=== PATIENT | female | born 1985 | race Caucasian/White ===

== ENCOUNTER 2018-03-25 15:01 | Emergency (ER) | payer OTHER ==
[2018-03-25] MEDS: METHOCARBAMOL 500 MG TAB PO (17:08)
[2018-03-25] MEDS: IBUPROFEN 800 MG TAB PO (17:08)
[2018-03-25] MEDS: predniSONE 20 MG TAB PO (17:08)
== END 2018-03-25 17:17 | disposition home or self-care (01) ==
LOC: M ED 15:01
DX: G56.03 Carpal tunnel syndrome, bilateral upper limbs (principal); M79.652 Pain in left thigh; M79.662 Pain in left lower leg; F41.9 Anxiety disorder, unspecified; Z91.013 Allergy to seafood
CPT/HCPCS: 93970

== ENCOUNTER → 2018-03-31 | Outpatient (REF) | payer OTHER | LOC: M SFHCLERA 17:10 | DX: Z53.8 Procedure and treatment not carried out for other reasons (principal) ==

== ENCOUNTER 2018-06-02 18:33 | Emergency (ER) | payer OTHER ==
[2018-06-02 21:49] LABS: BASO % 0.5 % (0.0-1.0); EOS # 0.1 10^3/uL (0.0-0.50); EOS % 1.4 % (0.0-3.0); HEMATOCRIT 41.6 % (36.0-47.0); HEMOGLOBIN 13.9 g/dl (12.0-15.5); IMMATURE GRANULOCYTE % 0.3 % (0-3.0); LYMPH # 2.9 10^3/uL (1.5-4.5); LYMPH % 37.3 % (24.0-44.0); MEAN CORPUSCULAR HEMOGLOBIN 29.3 pg (27.0-33.0); MEAN CORPUSCULAR HGB CONC 33.4 g/dl (32.0-36.5); MEAN CORPUSCULAR VOLUME 87.6 fl (80.0-96.0); MONO # 0.5 10^3/uL (0.0-0.8); MONO % 6.1 % (0.0-5.0); NEUTROPHILS # 4.2 10^3/uL (1.8-7.7); NEUTROPHILS % 54.4 % (36.0-66.0); PLATELET COUNT, AUTOMATED 231 10^3/uL (150-450); RED BLOOD COUNT 4.75 10^6/uL (4.00-5.40); WHITE BLOOD COUNT 7.7 10^3/uL (4.0-10.0)
[2018-06-02] MEDS: METOCLOPRAMIDE INJ 10MG/2ML VIAL (J2765) IV (21:54)
[2018-06-02] MEDS: NS 1,000 ML IV (21:54)
[2018-06-02] MEDS: KETOROLAC 30 MG/ML VIAL (J1885) IV (21:55)
[2018-06-02] MEDS: diphenhydrAMINE INJ 50MG/ML VIAL (J1200) IV (21:55)
[2018-06-02 22:11] LABS: ERYTHROCYTE SEDIMENTATION RATE 4 mm/hr (0-20)
[2018-06-02 22:12] LABS: ANION GAP 6 MEQ/L (8-16); BLOOD UREA NITROGEN 16 MG/DL (7-18); C REACTIVE PROTEIN QUANTITATIV < 0.30 MG/DL (0.00-0.30); CALCIUM LEVEL 9.2 MG/DL (8.5-10.1); CARBON DIOXIDE LEVEL 28 MEQ/L (21-32); CHLORIDE LEVEL 105 MEQ/L (98-107); CREATININE FOR GFR 0.83 MG/DL (0.55-1.30); GLOMERULAR FILTRATION RATE > 60.0 (>60); GLUCOSE, FASTING 86 MG/DL (70-100); SODIUM LEVEL 139 MEQ/L (136-145)
[2018-06-08 00:07] LABS: Lyme Disease IgG Ab 18 kDa Ban Absent (.); Lyme Disease IgG Ab 23 kDa Ban Absent (.); Lyme Disease IgG Ab 28 kDa Ban Absent (.); Lyme Disease IgG Ab 30 kDa Ban Absent (.); Lyme Disease IgG Ab 39 kDa Ban Absent (.); Lyme Disease IgG Ab 41 kDa Ban Present (.); Lyme Disease IgG Ab 45 kDa Ban Present (.); Lyme Disease IgG Ab 58 kDa Ban Absent (.); Lyme Disease IgG Ab 66 kDa Ban Absent (.); Lyme Disease IgG Ab 93 kDa Ban Absent (.); Lyme Disease IgG West Blot Int Negative (.); Lyme Disease IgM Ab 23 kDa Ban Absent (.); Lyme Disease IgM Ab 39 kDa Ban Absent (.); Lyme Disease IgM Ab 41 kDa Ban Absent (.); Lyme Disease IgM Ab Quantitati <0.80 index (0.00-0.79); Lyme Disease IgM West Blot Int Negative (.)
== END 2018-06-02 22:50 | disposition home or self-care (01) ==
LOC: M ED 18:33
DX: G43.909 Migraine, unspecified, not intractable, without status migrainosus (principal); Z79.899 Other long term (current) drug therapy
CPT/HCPCS: J1200

== ENCOUNTER → 2018-06-02 | Outpatient (CLI) | payer OTHER | LOC: M RAD 07:28 | DX: R10.11 Right upper quadrant pain (principal) ==

== ENCOUNTER → 2018-06-05 | Outpatient (REF) | payer OTHER | LOC: M SFHCLERA 11:08 | DX: J02.9 Acute pharyngitis, unspecified (principal) ==

== ENCOUNTER → 2018-06-22 | Outpatient (REF) | payer OTHER ==
[2018-06-22 18:52] LABS: APPEARANCE, URINE CLEAR (CLEAR); BACTERIA, URINE AUTO 1+ (NEGATIVE); BILIRUBIN, URINE AUTO NEGATIVE (NEGATIVE); BLOOD, URINE BLOOD 1+ (NEGATIVE); COLOR, URINE YELLOW (YELLOW); GLUCOSE, URINE (UA) AUTO NEGATIVE (NEGATIVE); KETONE, URINE AUTO NEGATIVE (NEGATIVE); LEUKOCYTE ESTERASE, URINE AUTO NEGATIVE (NEGATIVE); MUCUS, URINE SMALL (NEGATIVE); NITRITE, URINE AUTO NEGATIVE (NEGATIVE); PROTEIN, URINE AUTO NEGATIVE (NEGATIVE); RBC, URINE AUTO 0 /HPF (0-3); SPECIFIC GRAVITY URINE AUTO 1.012 (1.002-1.035); SQUAMOUS EPITHELIAL CELL UR AU 2 /HPF (0-6); UROBILINOGEN, URINE AUTO 0.2 mg/dL (0.0-2.0); WBC, URINE AUTO 0 /HPF (0-3)
== END ==
LOC: M SMT 17:19
DX: N30.10 Interstitial cystitis (chronic) without hematuria (principal)
CPT/HCPCS: 81001

== ENCOUNTER 2018-06-23 12:53 | Day surgery (SDC) | payer OTHER ==
[2018-06-23] MEDS: NS 1,000 ML IV (06:00)
[~2018-06-23 12:53] MED LIST: LIDOCAINE 2% INJ 100 MG/5 ML SDV (FOR ANES.) As Ordered; PROPOFOL 200 MG/20 ML VIAL As Ordered; fentaNYL 100 MCG/2 ML INJECTION (J3010) As Ordered
[2018-06-23] MEDS ORDERED: MIDAZOLAM INJ 2 MG/2 ML VIAL (J2250) As Ordered (13:58)
[2018-06-23] MEDS ORDERED: ONDANSETRON 4MG/2ML VIAL (J2405) As Ordered (14:12)
== END 2018-06-23 14:53 | disposition home or self-care (01) ==
LOC: M OPP 14:53
DX: K30 Functional dyspepsia (principal); R10.11 Right upper quadrant pain; R12 Heartburn; K26.9 Duodenal ulcer, unspecified as acute or chronic, without hemorrhage or perforation; K29.70 Gastritis, unspecified, without bleeding; K31.89 Other diseases of stomach and duodenum; K21.9 Gastro-esophageal reflux disease without esophagitis; M54.89 Other dorsalgia; M54.2 Cervicalgia; M79.7 Fibromyalgia; F41.9 Anxiety disorder, unspecified; F32.9 Major depressive disorder, single episode, unspecified; G43.909 Migraine, unspecified, not intractable, without status migrainosus; J45.909 Unspecified asthma, uncomplicated; R09.81 Nasal congestion; R06.83 Snoring; Z91.013 Allergy to seafood
CPT/HCPCS: 43239

== ENCOUNTER → 2018-07-14 | Outpatient (CLI) | payer OTHER ==
[2018-07-14 15:47] LABS: C REACTIVE PROTEIN QUANTITATIV < 0.30 MG/DL (0.00-0.30)
[2018-07-14 16:02] LABS: CONTROL LINE HPYORI INT CTR LINE PRESENT; H PYLORI QUALITATIVE IgG NEGATIVE (NEGATIVE)
[2018-07-14 17:00] LABS: ERYTHROCYTE SEDIMENTATION RATE 2 mm/hr (0-20)
== END ==
LOC: M LAB 14:39
DX: R19.7 Diarrhea, unspecified (principal)
CPT/HCPCS: 82784

== ENCOUNTER → 2018-08-24 | Outpatient (CLI) | payer OTHER | LOC: M RAD 15:46 | DX: J01.01 Acute recurrent maxillary sinusitis (principal) | CPT/HCPCS: 70486 ==

== ENCOUNTER → 2018-08-29 | Outpatient (REF) | payer OTHER ==
[~2018-08-29] MED LIST changes: +FISH1000 PO; +FISH1200 PO; +IBUP-1022 PO; +IBUP80TA PO; +LIDO5OIN28; -LIDOCAINE 2% INJ 100 MG/5 ML SDV (FOR ANES.) As Ordered; +METH1TAB40; +NORT10CA2; +PERC7.5T11; +PRED20TA PO; +PROBCAP14 PO; -PROPOFOL 200 MG/20 ML VIAL As Ordered; +RIBO400T PO; +ROBA500T PO; +TURM500T PO; +TYLE500T78 PO; +VITA200015 PO; +ZYRT10CA5 PO; -fentaNYL 100 MCG/2 ML INJECTION (J3010) As Ordered; +tumeric PO
[2018-08-29 18:40] LABS: APPEARANCE, URINE CLEAR (CLEAR); BACTERIA, URINE AUTO NEGATIVE (NEGATIVE); BILIRUBIN, URINE AUTO NEGATIVE (NEGATIVE); BLOOD, URINE BLOOD NEGATIVE (NEGATIVE); COLOR, URINE YELLOW (YELLOW); GLUCOSE, URINE (UA) AUTO NEGATIVE (NEGATIVE); KETONE, URINE AUTO TRACE mg/dL (NEGATIVE); LEUKOCYTE ESTERASE, URINE AUTO NEGATIVE (NEGATIVE); MUCUS, URINE SMALL (NEGATIVE); NITRITE, URINE AUTO NEGATIVE (NEGATIVE); PROTEIN, URINE AUTO NEGATIVE (NEGATIVE); RBC, URINE AUTO 0 /HPF (0-3); SPECIFIC GRAVITY URINE AUTO 1.018 (1.002-1.035); SQUAMOUS EPITHELIAL CELL UR AU 2 /HPF (0-6); UROBILINOGEN, URINE AUTO 0.2 mg/dL (0.0-2.0); WBC, URINE AUTO 1 /HPF (0-3)
== END ==
LOC: M SMT 17:15
PROVIDERS: ATTEND Nurse Practitioner Family
DX: R39.15 Urgency of urination (principal)
CPT/HCPCS: 81001; 87086; G0463

== ENCOUNTER → 2018-09-01 | Outpatient (CLI) | payer OTHER ==
--- NOTE | 2018-09-02 03:46 | REP ---
Clinical: Back / flank pain. Technique: Real time shultz scale and color ultrasound examination using curved array transducer. Findings: Bilateral kidneys are normal in contour, size, echogenicity, and reniform shape without hydronephrosis, nephrolithiasis, cystic or renal mass lesion. Right kidney measures 10.8 x 4.3 x 4.3 cm. Left kidney measures 11.2 x 4.4 x 5.0 cm. No perinephric fluid is appreciated. Bladder is normal in appearance without wall thickening or mass lesion. Bilateral ureteral jets are identified. Prevoid bladder measures 12.8 x 7.0 x 10.2 cm (600 ml). Postvoid bladder measures 5.7 x 2.5 x 3.8 cm (35 ml). Postvoid residual equals 6%. Impression: Normal renal/bladder ultrasound. Electronically Signed by Reynaldo Ingram MD 09/02/2018 03:38 A
== END ==
LOC: M RAD 10:46
PROVIDERS: ATTEND Nurse Practitioner Family
DX: M54.9 Dorsalgia, unspecified (principal)

== ENCOUNTER → 2018-10-31 | Outpatient (REF) | payer OTHER ==
[2018-10-31 18:09] LABS: BACTERIA, URINE AUTO NEGATIVE (NEGATIVE); RBC, URINE AUTO 0 /HPF (0-3); SQUAMOUS EPITHELIAL CELL UR AU 0 /HPF (0-6); WBC, URINE AUTO 0 /HPF (0-3)
== END ==
LOC: M SMT 16:56
PROVIDERS: ATTEND Specialist
DX: M54.9 Dorsalgia, unspecified (principal)
CPT/HCPCS: 81015; 87086; G0463

== ENCOUNTER 2018-11-28 15:25 | Emergency (ER) | payer OTHER ==
[~2018-11-28] VITALS: Ht 162.6 cm; Wt 68.3 kg
[2018-11-28 15:25] VITALS: BP 117/71
--- NOTE | 2018-11-28 16:33 | REP ---
Duplex extremity venous ultrasound: Left lower extremity. History: Left lower extremity pain and swelling. Question DVT. Findings: The deep veins are anechoic and fully compressible from the groin to the popliteal fossa in the left lower extremity. Color flow imaging is homogeneous. Spectral Doppler interrogation demonstrates intact respiratory variation in flow and normal manual augmentation of flow. There is no evidence of deep vein thrombosis. Impression: Negative left lower extremity duplex venous ultrasound. No evidence of deep vein thrombosis. Electronically Signed by bAram Villegas MD 11/28/2018 04:25 P
[2018-11-28 16:53] LABS: BLOOD UREA NITROGEN 12 MG/DL (7-18); CALCIUM LEVEL 8.5 MG/DL (8.5-10.1); CARBON DIOXIDE LEVEL 28 MEQ/L (21-32); CHLORIDE LEVEL 107 MEQ/L (98-107); CREATININE FOR GFR 0.83 MG/DL (0.55-1.30); GLOMERULAR FILTRATION RATE > 60.0 (>60); GLUCOSE, FASTING 88 MG/DL (70-100); POTASSIUM SERUM 3.7 MEQ/L (3.5-5.1); SODIUM LEVEL 140 MEQ/L (136-145)
== END 2018-11-28 17:12 | disposition home or self-care (01) ==
LOC: M ED 15:25
DX: M79.662 Pain in left lower leg (principal); Z79.899 Other long term (current) drug therapy; Z91.013 Allergy to seafood

== ENCOUNTER 2018-12-12 15:29 | Emergency (ER) | payer OTHER ==
[~2018-12-12] VITALS: Ht 162.6 cm; Wt 69.2 kg
[2018-12-12] MEDS ORDERED: BACL10TA2 (15:52)
[2018-12-12 17:42] LABS: BASO # 0.1 10^3/uL (0.0-0.2); BASO % 0.7 % (0.0-1.0); EOS # 0.1 10^3/uL (0.0-0.50); EOS % 0.8 % (0.0-3.0); HEMATOCRIT 41.6 % (36.0-47.0); LYMPH # 2.8 10^3/uL (1.5-4.5); LYMPH % 32.6 % (24.0-44.0); MEAN CORPUSCULAR HEMOGLOBIN 29.1 pg (27.0-33.0); MEAN CORPUSCULAR HGB CONC 33.7 g/dl (32.0-36.5); MEAN CORPUSCULAR VOLUME 86.5 fl (80.0-96.0); MONO # 0.5 10^3/uL (0.0-0.8); MONO % 6.1 % (0.0-5.0); NEUTROPHILS # 5.2 10^3/uL (1.8-7.7); NEUTROPHILS % 59.6 % (36.0-66.0); PLATELET COUNT, AUTOMATED 200 10^3/uL (150-450); RED BLOOD COUNT 4.81 10^6/uL (4.00-5.40); WHITE BLOOD COUNT 8.7 10^3/uL (4.0-10.0)
[2018-12-12 18:07] LABS: ALT/SGPT 17 U/L (12-78); BILIRUBIN,DIRECT < 0.1 MG/DL (0.0-0.2); BILIRUBIN,TOTAL 0.3 MG/DL (0.2-1.0); BLOOD UREA NITROGEN 9 MG/DL (7-18); C REACTIVE PROTEIN QUANTITATIV < 0.30 MG/DL (0.00-0.30); CARBON DIOXIDE LEVEL 29 MEQ/L (21-32); CHLORIDE LEVEL 108 MEQ/L (98-107); CREATININE FOR GFR 0.83 MG/DL (0.55-1.30); GLOMERULAR FILTRATION RATE > 60.0 (>60); GLUCOSE, FASTING 90 MG/DL (70-100); POTASSIUM SERUM 3.8 MEQ/L (3.5-5.1); SODIUM LEVEL 141 MEQ/L (136-145); TOTAL PROTEIN 7.2 GM/DL (6.4-8.2)
[2018-12-12 18:24] LABS: ERYTHROCYTE SEDIMENTATION RATE 2 mm/hr (0-20)
--- NOTE | 2018-12-12 19:55 | REP ---
Clinical: Right facial numbness. Technique: Standard noncontrast MRI of the brain sequencing. Findings: The ventricles, sulci, and cisterns are symmetric and normal. Whitmore-white differentiation is maintained. No acute intracranial mass or mass effect is appreciated. No signal intensity abnormalities are identified. There is no evidence for acute infarction. No extra-axial collection. Midbrain and midline structures are intact, symmetric and normal. Bilateral orbits are normal. Sinuses are clear. Impression: Negative noncontrast MRI of the brain. Electronically Signed by Reynaldo Ingram MD 12/12/2018 07:46 P
--- NOTE | 2018-12-12 19:58 | REP ---
Clinical: Right facial numbness. Technique: Noncontrast MRA of the brain with 3-D [id number] source axial images and multiplanar MIP re-formations. Findings: Intracranial vasculature is relatively symmetric and normal. No arteriovenous malformation, obvious aneurysm, or areas of decreased enhancement or stenosis appreciated. Dominant right vertebral artery identified. Impression: Essentially normal MRA of the brain. No acute pathology appreciated. Electronically Signed by Reynaldo Ingram MD 12/12/2018 07:49 P
[2018-12-12 20:20] VITALS: BP 115/64
== END 2018-12-12 20:31 | disposition home or self-care (01) ==
LOC: M ED 15:29
DX: R20.2 Paresthesia of skin (principal); Z79.899 Other long term (current) drug therapy; Z91.013 Allergy to seafood